=== PATIENT | female | born 1995 | race Caucasian/White ===

== ENCOUNTER 2019-05-20 08:04 | Emergency (ER) | payer BC, SELFPAY ==
--- NOTE | ~2019-05-20 | XR_ITS ---
EXAMINATION: XR chest 2V 05/20/2019 09:14 INDICATION: Productive cough and fever PROCEDURE: 2 view chest COMPARISON: 02/13/2015 FINDINGS: The lungs are clear. The cardiomediastinal silhouette is within normal limits. There are no pleural effusions. There is no pneumothorax suspected. IMPRESSION: 1: NO ACUTE CARDIOPULMONARY DISEASE. Reviewed, dictated and finalized at location A.
[2019-05-20 08:35] VITALS: BP 117/73; PULSE 138; RESP 16; TEMP 37.9; O2SAT 99
--- NOTE | 2019-05-20 08:49 | ED.GENADULT ---
HPI - General Adult General Chief complaint: Upper Respiratory Infection Stated complaint: Coughing fits/sore throat/back pain/wheezing Time Seen by Provider: 05/20/19 08:49 Source: patient Mode of arrival: ambulatory Limitations: no limitations History of Present Illness HPI narrative: 24-year-old female patient presents to the [facility] with complaints of cold symptoms for the past 2 to 3 days. Patient states she has had a cough, shortness of breath. Patient states that she has been feeling very tired and rundown recently. Denies getting a flu shot. Patient states she has been taking Mucinex, honey and Tylenol for her symptoms. Patient denies being a smoker or living in a household where anyone smokes. Patient states about 5 years ago she did get pneumonia and had similar symptoms. Patient denies or breast-feeding at this time. Patient denies any recent travel history within the last 2 weeks. Related Data Allergies Allergy/AdvReac Type Severity Reaction Status Date / Time No Known Allergies Allergy Unverified 10/01/18 09:52 Review of Systems Review of Systems: Narrative: CONSTITUTIONAL: Positive fever, denies chills, or sweats. EYES: Denies visual changes, redness, or discharge. ENT: Positive rhinorrhea, congestion, sore throat, denies otalgia. CARDIOVASCULAR: Denies chest pain, palpitations, or edema. RESPIRATORY: Positive cough with dyspnea. GASTROINTESTINAL: Denies abdominal pain, nausea, vomiting, or diarrhea. GENITOURINARY: Denies dysuria or hematuria. SKIN: Denies rash or itching. MUSCULOSKELETAL: Denies back pain, joint pain, or myalgia. NEUROLOGIC: Denies headache, numbness, or weakness. PSYCHIATRIC: Denies anxiety or depression. PMFSH Surgical History Surgical History (Updated 05/20/19 @ 08:50 by LATRELL Rojas) History of orthopedic surgery Bunionectomy, trigger release Social History Social History Gender identity (if verbalized by the patient): Female Comments At the time of my signature I agree with nursing past medical history, surgical, social, and family history. There is no relevant family history pertinent to the presenting complaint. Exam Narrative: Exam Narrative: GENERAL: ill-appearing, well-nourished, and in no acute distress. HEAD: Normocephalic, atraumatic. No tenderness noted to frontal maxillary sinuses on palpation EYES: PERRLA and EOMI. ENT: Nares with erythema and edema noted bilaterally, no rhinorrhea or epistaxis. Mucous membranes moist. Posterior pharynx with no erythema, tonsil enlargement, exudates or lesions present. Bilateral TMs are clear with no erythema or foreign bodies in the canal NECK: Supple. No lymphadenopathy CHEST: Patient does have decreased lung sounds noted to bilateral lower lobes on auscultation. Patient does have slight labored breathing noted but able to talk in clear complete sentences. No tripoding noted. There is a cough noted during exam. HEART: Regular rate and rhythm. No murmur heard. Normal peripheral pulses. ABDOMEN: Soft, nontender, nondistended, normal active bowel sounds. EXTREMITIES: Normal range of motion. No edema. SKIN: Warm, dry, no rash. NEURO: No focal deficits. Alert and oriented x3. Course Reevaluation(s) Reevaluation #1: Reevaluated patient after DuoNeb was completed. Patient states that she is feeling better feels like she can take the big deeper breaths. Patient's lung sounds are clear to bilateral in upper and lower lobes on auscultation after the DuoNeb was completed. Discussed with patient that her x-ray is negative for any pneumonia. Discussed with patient that again she could possibly still have influenza however since she is outside of the time to be treated I do not think that we need to swab her today. Discussed with patient her treatment is good to be [id number] Tylenol, ibuprofen I am to discharge her home with an albuterol inhaler, oral steroid,
[2019-05-20] MEDS: ALBUTEROL SULFATE NEB 2.5 MG/3 ML INH INHALATION (09:16)
[2019-05-20] MEDS: IPRATROPIUM BR 0.02% INH SOLN 0.5 MG/2.5 ML VIAL INHALATION (09:16)
== END 2019-05-20 09:48 | disposition home or self-care (01) ==
PROVIDERS: Emergency Provider Nurse Practitioner Family
DX: J06.9 Acute upper respiratory infection, unspecified (principal); R05 Cough
CPT/HCPCS: 71046; 87081; 87880; 94640; 99213; G0463

== ENCOUNTER 2023-01-13 15:12 | Emergency (ER) | payer BC, SELFPAY ==
--- NOTE | 2023-01-13 15:19 | ED.URI ---
HPI - URI/Sore Throat General Chief Complaint: Upper Respiratory Infection Stated Complaint: Cough Time Seen by Provider: 01/13/23 15:19 Source: patient Mode of arrival: ambulatory Limitations: no limitations History of Present Illness HPI Narrative: Patient is a 27-year-old female who presents with 2 weeks of cough, congestion. Patient states she had fever at the start of symptoms but has not had 1 since. Patient reports she has coughing fits where she can not catch her breath and feels like she is going to throw up. Patient has tried [id number] medication with no relief. Patient has tried to contact PCP's office twice and was unable to make an appointment due to full schedule. Denies any ear pain, sore throat, sinus pressure, nausea, vomiting, diarrhea. Related Data Allergies Allergy/AdvReac Type Severity Reaction Status Date / Time No Known Allergies Allergy Unverified 01/13/23 15:30 Review of Systems Review of Systems: All systems reviewed & are unremarkable except as noted in HPI and below Constitutional: Constitutional: Denies body ache(s), Denies chills, Denies fatigue, Denies fever(s), Denies headache(s), Denies malaise and Denies weakness Eyes: Eyes: Denies blurry vision, Denies itchy eyes and Denies loss of vision ENT: Denies otalgia, Denies headache(s), Reports nasal congestion, Denies sinus pain and Denies sore throat Cardiovascular: Cardiovascular: Denies chest pain, Denies irregular heart rhythm and Denies dyspnea Respiratory: Respiratory: Reports cough and Denies dyspnea Gastrointestinal: Gastrointestinal: Denies abdominal pain, Denies diarrhea, Denies nausea and Denies vomiting Musculoskeletal: Musculoskeletal: Denies back pain, Denies myalgias and Denies arthralgias Integumentary/Breasts: Skin/Breast: Denies pruritus and Denies rash Neurologic: Denies headache(s), Denies loss of vision and Denies weakness Psychiatric: Psychiatric: Reports no additional psychiatric complaints Endocrine: Endocrine: Denies fatigue Allergic/Immunologic: Allergic/Immunologic: Denies itchy eyes PMFSH Surgical History Surgical History History of orthopedic surgery Bunionectomy, trigger release Social History Social History Gender identity (if verbalized by the patient): Female Comments At time of signature, agree with nursing past medical, surgical, social and family history. There is no relevant family history pertinent to the presenting complaint. Exam Const: General: cooperative, healthy appearing, comfortable, no acute distress and well nourished Nutritional Appearance: well nourished Orientation/consciousness: patient oriented x3 Limitations: no limitations HENMT: Head: normal to inspection, normocephalic and atraumatic Ears: hearing grossly normal bilaterally, external ears normal, TM's normal bilaterally, EAC's normal and no periauricular adenopathy Face/Nose/Sinus: Normal external nose present, Abnormal mucous membranes and turbinates present erythematous bilateral and diffuse, normal facial exam, sinuses nontender and face symmetric Face and sinus: normal facial exam, sinuses nontender and face symmetric Mouth: Yes Normal oral and palatal mucosa present, Yes lip normal, Yes tongue normal, Yes Normal salivary glands and ducts present, Yes oropharynx normal and Yes moist mucous membranes Teeth and gingiva: dentition normal Throat: posterior oropharynx normal, tonsils normal and uvula midline Eyes: General: appearance normal, both eyes and all related structures Alignment and Position: alignment normal and position normal Periorbital: periorbital findings normal Eyelids: eyelids normal Pupils: Equal, round and reactive pupils present Neck: Neck: normal visual inspection, full ROM, no lymphadenopathy and supple Chest: Chest palpation & inspection: normal inspection of the chest and
[2023-01-13 15:21] VITALS: BP 126/73; PULSE 113; RESP 18; TEMP 36.8; O2SAT 99
== END 2023-01-13 15:39 | disposition home or self-care (01) ==
PROVIDERS: Emergency Provider Nurse Practitioner Family; PCP Family Medicine
DX: J40 Bronchitis, not specified as acute or chronic (principal)
CPT/HCPCS: 99213; G0463

== ENCOUNTER 2023-01-19 18:29 | Emergency (ER) | payer BC, SELFPAY ==
--- NOTE | ~2023-01-19 | XR_ITS ---
EXAMINATION: XR chest 2V DATE: 01/19/2023 19:03 INDICATION: Cough. TECHNIQUE: Frontal and lateral views of the chest were obtained. COMPARISON: Chest 2 views 05/20/2019, CT abdomen and pelvis 06/17/2009 FINDINGS: There is no pneumonia, pleural effusion, or pneumothorax. The heart size is normal. There i s mild chronic anterior wedging of T12 vertebral body. IMPRESSION: 1. No acute cardiopulmonary disease. Reviewed, dictated and finalized at location E. [facility]
[2023-01-19 18:42] VITALS: BP 138/75; PULSE 94; RESP 18; TEMP 36.4; O2SAT 100
--- NOTE | 2023-01-19 18:55 | ED.URI ---
HPI - URI/Sore Throat General Chief Complaint: Upper Respiratory Infection Stated Complaint: cough Time Seen by Provider: 01/19/23 18:47 Source: patient, RN notes reviewed and old records reviewed Mode of arrival: ambulatory Limitations: no limitations History of Present Illness HPI Narrative: Patient presents with a 3 week history of cough that is occasionally productive, wheezing, shortness of breath with exertion, chest congestion. She was seen at [facility] 6 days ago, diagnosed with bronchitis, and prescribed azithromycin, Tessalon Perles, albuterol, and prednisone. Patient states the medications have not been helping her, except the albuterol inhaler when she uses it. Denies history of asthma. Denies fever. Related Data Allergies Allergy/AdvReac Type Severity Reaction Status Date / Time No Known Allergies Allergy Unverified 01/15/23 14:12 Review of Systems Review of Systems: CONSTITUTIONAL: Denies body aches, fever, chills, or sweats. EYES: Denies visual changes, redness, or discharge. ENT: Denies rhinorrhea, congestion, sore throat, or otalgia. CARDIOVASCULAR: Denies chest pain, palpitations, or edema. RESPIRATORY: + cough, wheezing, shortness of breath, chest congestion GASTROINTESTINAL: Denies abdominal pain, nausea, vomiting, or diarrhea. GENITOURINARY: Denies dysuria or hematuria. SKIN: Denies rash, itching, or wounds. MUSCULOSKELETAL: Denies back pain, joint pain, or myalgia. NEUROLOGIC: Denies headache, numbness, tingling, or weakness. PSYCH: Denies depression or anxiety. [facility] Surgical History Surgical History History of orthopedic surgery Bunionectomy, trigger release Social History Social History Gender identity (if verbalized by the patient): Female Comments At time of signature, I have reviewed and agree with nursing past medical, surgical, social and family history unless otherwise noted. Please see nursing chart for further information. There is no relevant family history pertinent to the presenting complaint Exam Narrative: GENERAL: Mildly ill-appearing, well-nourished, and in no acute distress. HEAD: Normocephalic, atraumatic. EYES: EOMI. No redness or drainage. Conjunctivae normal. ENT: Mucous membranes pink and moist. Nares clear. No rhinorrhea. TMs normal bilaterally. Throat normal. Uvula midline. NECK: Normal AROM. Supple. No lymphadenopathy. CHEST: No respiratory distress. Clear to auscultation. Harsh cough noted. HEART: Regular rate and rhythm. No murmur appreciated. Normal peripheral pulses. EXTREMITIES: Normal range of motion. No edema. SKIN: Warm, dry, no rash. Capillary refill normal. Normal skin turgor. NEURO: No focal deficits. Alert and oriented x3. Gait steady. PSYCH: Normal affect. No signs of depression or anxiety. Course Course Level of Care: Express Care Visit Vital Signs Vital signs: Vital Signs Temperature 97.5 F L 01/19/23 18:42 Pulse Rate 94 01/19/23 18:42 Respiratory Rate 18 01/19/23 18:42 Blood Pressure 138/75 01/19/23 18:42 Pulse Oximetry 100 01/19/23 18:42 Oxygen Delivery Room Air 01/19/23 18:42 Temperature 97.5 F L 01/19/23 18:42 Pulse Rate 94 01/19/23 18:42 Respiratory Rate 18 01/19/23 18:42 Blood Pressure 138/75 01/19/23 18:42 Pulse Oximetry 100 01/19/23 18:42 Oxygen Delivery Room Air 01/19/23 18:42 Reviewed MDM - URI/Sore Throat MDM Narrative Medical decision making narrative: X-rays negative. Patient's symptoms are consistent with significant bronchitis. Will treat her with another short course of prednisone, but up to 50 mg daily this time, some Cheratussin to take at night as she states she is up all night coughing, Tessalon Perle to take during the day, but increased to 200 mg instead of 100 mg. Patient has also been instructed to use her inhaler every 4-6
== END 2023-01-19 19:31 | disposition home or self-care (01) ==
PROVIDERS: Emergency Provider Nurse Practitioner; PCP Family Medicine
DX: J40 Bronchitis, not specified as acute or chronic (principal)
CPT/HCPCS: 71046; 99213; G0463

== ENCOUNTER 2024-01-03 19:19 | Emergency (ER) | payer BC, SELFPAY ==
--- NOTE | 2024-01-03 19:26 | ED.URI ---
HPI - URI/Sore Throat General Chief Complaint: Upper Respiratory Infection Stated Complaint: coughing and sore throat/clumpy hard mucous Time Seen by Provider: 01/03/24 19:44 Source: patient, RN notes reviewed and old records reviewed Mode of arrival: ambulatory Limitations: no limitations History of Present Illness HPI Narrative: 28-year-old female presents to the [facility] with cough, sore throat that started yesterday. States that she is taking [id number] medications. Denies fevers Onset (ago): day(s) (1) Treatments prior to arrival: cold medicine Related Data Allergies Allergy/AdvReac Type Severity Reaction Status Date / Time No Known Allergies Allergy Unverified 03/28/23 09:38 Review of Systems Review of Systems: All systems reviewed & are unremarkable except as noted in HPI and below Constitutional: Constitutional: Reports no additional constitutional complaints ENT: Reports as per HPI and Reports sore throat Cardiovascular: Cardiovascular: Reports no additional cardiovascular complaints, Denies chest pain and Denies dyspnea Respiratory: Respiratory: Reports as per HPI, Denies chest congestion, Reports cough and Denies dyspnea Gastrointestinal: Gastrointestinal: Reports no additional gastrointestinal complaints, Denies abdominal pain, Denies nausea and Denies vomiting Musculoskeletal: Musculoskeletal: Reports no additional musculoskeletal complaints Integumentary/Breasts: Skin/Breast: Reports system reviewed and no additional complaints, except as docu PMFSH Surgical History Surgical History History of orthopedic surgery Bunionectomy, trigger release Social History Social History Smoking status: Never smoker Alcohol intake: never Substance use: never Lack of Transportation: No Lack of Food: Never True Current Housing: I Have Housing Concerned About Future Housing: No Difficulty Paying Gas/Electric Bills: No Difficulty Paying for Meds: No Currently Unemployed: No Education: High School Diploma/GED Difficulty w/ Childcare or Family Care: No Living arrangements: with family Occupation/Education: occupation Gender identity (if verbalized by the patient): Female Sexual Orientation (if Verbalized by the Patient): Straight or Heterosexual Spiritual care concerns: No Comments At the time of my signature, I reviewed and agree with the nursing past medical, surgical, social, and family history. There is no relevant family history pertinent to the patient complaint. Exam Const: General: cooperative, healthy appearing, comfortable, no acute distress, well developed, alert and well nourished Nutritional Appearance: well nourished Orientation/consciousness: patient oriented x3 Limitations: no limitations HENMT: Head: normal to inspection Ears: hearing grossly normal bilaterally, external ears normal, TM's normal bilaterally, EAC's normal, mastoids normal and no periauricular adenopathy Face/Nose/Sinus: Normal external nose present, normal facial exam and face symmetric Face and sinus: normal facial exam and face symmetric Mouth: Yes Normal oral and palatal mucosa present, Yes lip normal and Yes tongue normal Throat: uvula midline, postnasal drainage and no uvular edema Eyes: General: appearance normal, both eyes and all related structures Alignment and Position: alignment normal Periorbital: periorbital findings normal Neck: Neck: normal visual inspection, full ROM, no lymphadenopathy and no meningeal signs Chest: Chest palpation & inspection: normal inspection of the chest Resp: Effort & Inspection: normal respiratory effort and able to speak in complete sentences Auscultation: clear to auscultation bilaterally, no crackles, no rales, no rhonchi and no wheezes Cardio: Rate: regular rate Skin: General skin exam: normal color and no rashes or lesions noted Lesions: no lesions Rashes: no rashes Wounds: no wounds Neuro: General: patient oriented x3, gait normal, tone normal, moves all extremities and no meningeal signs Cognition (Neuro): normal cognition Speech: normal speech Gait exam (Neuro): Normal gait present Extrem: General: normal to inspection, full ROM, capillary refill normal and normal gait Psych: Appearance: grossly normal and well kempt Mental Status: mental status grossly normal Speech and movement: Normal speech and movement present and Clear speech present Affect: normal affect Attitude: cooperative Course Course Level of Care: Express Care Visit Vital Signs Vital signs: Vital Signs Temperature 98.0 F 01/03/24 19:41 Pulse Rate 119 H 01/03/24 19:41 Respiratory Rate 17 01/03/24 19:41 Blood Pressure 133/82 01/03/24 19:41 Pulse Oximetry 99 01/03/24 19:41 Oxygen Delivery Room Air 01/03/24 19:41 Temperature 98.0 F 01/03/24 19:41 Pulse Rate 119 H 01/03/24 19:41 Respiratory Rate 17 01/03/24 19:41 Blood Pressure 133/82 01/03/24 19:41 Pulse Oximetry 99 01/03/24 19:41 Oxygen Delivery Room Air 01/03/24 19:41 Reviewed MDM - URI/Sore Throat MDM Narrative Medical decision making narrative: Patient sitting comfortably in exam room. Nontoxic, vitals stable. Patient in no acute distress Patient with URI symptoms x1 day. States she has tried ?everything. ? Postnasal drainage noted on exam, cough probably from the postnasal drainage Patient appropriate for outpatient treatment and follow-up Discharge instructions reviewed with patient, as well as provided in writing per nursing staff. The instructions also include specific and strict return/GO TO THE ER as well as f/u information. All questions have been answered, and the patient deny any further questions with discharge and discharge plan. Some parts of this dictation were generated by voice recognition software and may contain typographical and/or grammatical inaccuracies. Differential Diagnosis Differential diagnosis: Likely upper respiratory infection, otitis media, sinusitis, viral infection, bronchitis and influenza Lab Data Labs: Lab Results 01/03/24 01/03/24 Range/Units 19:45 19:54 POC Influenza A Ag Negative (Negative) POC Influenza B Ag Negative (Negative) POC SARS CoV-2 Ag Negative (Negative) POC Grp A Strep Screen Negative (Negative) Reviewed Critical Care Time Critical Care Time Critical Care Time: No Discharge Plan Discharge Clinical Impression: Upper respiratory infection, PND (post-nasal drip) Patient Disposition: Home, Self-Care Condition: Stable Instructions: Antibiotic Form, Upper Respiratory Infection (ED), Acute Bronchitis (ED), Postnasal Drip (DC) Additional Instructions: Your rapid strep swab was negative today at [facility]. A throat culture will be sent to the laboratory for further testing. If the test is positive, you will receive a phone call within 48 hours and an appropriate antibiotic will be initiated at that time. Your rapid COVID test were negative Your rapid flu test was negative Your symptoms are likely due to a viral illness, which is not treated with antibiotics. Viral symptoms can be present for up to a few weeks. -Alternate Tylenol and Motrin per package directions for fever or pain. -Antihistamine medication such as Benadryl at night and Zyrtec/Claritin/Lori during the day can help improve symptoms. -doing daily nasal irrigations can help relieve pressure your sinuses. Things like a Neti pot -Use Flonase twice a day for 5 days then daily to help reduce the inflammation and dry up your sinuses. -You can also use Sudafed or Mucinex. Be sure to drink plenty of water with these medications at least 8 ounces with every dose and it is important to drink 8 to 10 glasses of water per day. Water is a natural decongestant -Eat and drink things that are easy to swallow, like tea or soup, or popsicles. -Oral rinses such as: Salt water gargles and/or may use topical anesthetic (eg. Chloraseptic spray) or lozenges to relieve dryness or throat pain). -Frequent hand washing or hand manager trust is one of the best ways to prevent spread of infection. -Using a vaporizer or humidifier at night will also help thin secretions and help with coughing up phlegm. -Follow up with primary care provider in 3-5 days if condition is not improving - For new or worsening symptoms go directly to the nearest ER Patient Language: Tongan Prescriptions: New benzonatate 100 mg capsule 100 mg PO TID PRN (Reason: cough) Qty: 10 0RF methylprednisolone [Methylpred DP] 4 mg tablets,dose pack See Rx Instructions PO .COMPLEX Qty: 21 0RF Rx Instructions: orally per package directions No Action benzonatate 200 mg capsule 200 mg PO TID PRN (Reason: cough) Qty: 40 0RF Follow-up/Referrals: Jose Redmond MD [Primary Care Provider] - 2 Weeks ([facility] follow-up) Stand Alone Forms: Work/School Release IP Time of Disposition: 19:53
[2024-01-03 19:41] VITALS: BP 133/82; PULSE 119; RESP 17; TEMP 36.7; O2SAT 99
[2024-01-03 19:46] LABS: EDSTREPNEGPOS1 Negative (Negative)
[2024-01-03 19:56] LABS: EDCOVIDSCREEN Negative (Negative); EDINFLUASCREEN Negative (Negative); EDINFLUBSCREEN Negative (Negative)
== END 2024-01-03 19:54 | disposition home or self-care (01) ==
PROVIDERS: Emergency Provider Nurse Practitioner; PCP Family Medicine
DX: J06.9 Acute upper respiratory infection, unspecified (principal); R09.82 Postnasal drip; Z20.822 Contact with and (suspected) exposure to COVID-19
CPT/HCPCS: 87081; 87426; 87804; 87880; 99213; G0463

== ENCOUNTER 2024-02-12 18:42 | Emergency (ER) | payer BC, SELFPAY ==
--- NOTE | ~2024-02-12 | XR_ITS ---
XR chest 2V Ordering provider: Estrella Diaz APRN History: 28 years Female with . cough . Comparison: None. FINDINGS: MEDIASTINUM: The cardiac silhouette is not enlarged. LUNGS: No effusions or pneumothorax. Opacification in the right paracardiac area with loss of silhoue tte of the right cardiac border suggestive of pneumonia in the middle lobe. OTHER: No free air under the diaphragm. IMPRESSION: Middle lobe pneumonia. Reviewed, dictated and finalized at location A. [facility] [employer] IMPRESSION: Middle lobe pneumonia.
--- NOTE | 2024-02-12 18:54 | ED_ITS ---
HPI - URI/Sore Throat General Chief Complaint: Upper Respiratory Infection Stated Complaint: sore throat / cough Time Seen by Provider: 02/12/24 18:55 Source: patient, RN notes reviewed and old records reviewed Mode of arrival: ambulatory Limitations: no limitations History of Present Illness HPI Narrative: 28-year-old female presents to the [facility] with a cough, sore throat and laryngitis since Sunday, 4 days. Has taken Flonase pills as well as 1 dose of ibuprofen. Denies fever Onset (ago): day(s) (4) Related Data Home Medications Medication Instructions Recorded Confirmed etonogestrel 68 mg subdermal 1 implant subdermal ONCE 02/12/24 02/12/24 implant (Nexplanon) Allergies Allergy/AdvReac Type Severity Reaction Status Date / Time No Known Allergies Allergy Verified 02/12/24 18:49 Review of Systems Review of Systems: All systems reviewed & are unremarkable except as noted in HPI and below Constitutional: Constitutional: Reports no additional constitutional complaints ENT: Reports as per HPI and Reports sore throat Cardiovascular: Cardiovascular: Reports no additional cardiovascular complaints, Denies chest pain and Denies dyspnea Respiratory: Respiratory: Reports as per HPI, Denies chest congestion, Reports cough, Reports excessive phlegm production and Denies dyspnea Gastrointestinal: Gastrointestinal: Reports no additional gastrointestinal complaints, Denies abdominal pain, Denies nausea and Denies vomiting Musculoskeletal: Musculoskeletal: Reports no additional musculoskeletal complaints Integumentary/Breasts: Skin/Breast: Reports system reviewed and no additional complaints, except as docu COUNTS INCLUDE 234 BEDS AT THE [facility] Surgical History Surgical History History of orthopedic surgery Bunionectomy, trigger release Social History Social History Smoking status: Never smoker Alcohol intake: never Substance use: never Lack of Transportation: No Lack of Food: Never True Current Housing: I Have Housing Concerned About Future Housing: No Difficulty Paying Gas/Electric Bills: No Difficulty Paying for Meds: No Currently Unemployed: No Education: High School Diploma/GED Difficulty w/ Childcare or Family Care: No Living arrangements: with family Occupation/Education: occupation Gender identity (if verbalized by the patient): Female Sexual Orientation (if Verbalized by the Patient): Straight or Heterosexual Spiritual care concerns: No Comments At the time of my signature, I reviewed and agree with the nursing past medical, surgical, social, and family history. There is no relevant family history pertinent to the patient complaint. Exam Const: General: cooperative, healthy appearing, comfortable, no acute distress, well developed, alert and well nourished Nutritional Appearance: well nourished and obese Orientation/consciousness: patient oriented x3 Limitations: no limitations HENMT: Head: normal to inspection Ears: hearing grossly normal bilaterally, external ears normal, TM's normal bilaterally, EAC's normal, mastoids normal and no periauricular adenopathy Face/Nose/Sinus: Normal external nose present, normal facial exam and face symmetric Face and sinus: normal facial exam and face symmetric Mouth: Yes Normal oral and palatal mucosa present, Yes lip normal and Yes tongue normal Throat: posterior oropharynx normal, uvula midline and no uvular edema Eyes: General: appearance normal, both eyes and all related structures Alignment and Position: alignment normal Periorbital: periorbital findings normal Neck: Neck: normal visual inspection, full ROM, no lymphadenopathy and no meningeal signs Chest: Chest palpation & inspection: normal inspection of the chest Resp: Effort & Inspection: normal respiratory effort and able to speak in complete sentences Auscultation: no crackles, no rales, no rhonchi, no wheezes and diminished lung sounds bilateral in the lower lung brown Cardio: Rate: regular rate Skin: General skin exam: normal color and no rashes or lesions noted Lesions: no lesions Rashes: no rashes Wounds: no wounds Neuro: General: patient oriented x3, gait normal, tone normal, moves all extremities and no meningeal signs Cognition (Neuro): normal cognition Speech: normal speech Gait exam (Neuro): Normal gait present Extrem: General: normal to inspection, full ROM, capillary refill normal and normal gait Psych: Appearance: grossly normal and well kempt Mental Status: mental status grossly normal Speech and movement: Normal speech and movement present and Clear speech present Affect: normal affect Attitude: cooperative Course Course Level of Care: Express Care Visit Vital Signs Vital signs: Vital Signs Temperature 98.0 F 02/12/24 18:55 Pulse Rate 111 H 02/12/24 18:55 Respiratory Rate 18 02/12/24 18:55 Blood Pressure 132/73 02/12/24 18:55 Pulse Oximetry 100 02/12/24 18:55 Oxygen Delivery Room Air 02/12/24 18:55 Temperature 98.0 F 02/12/24 18:55 Pulse Rate 111 H 02/12/24 18:55 Respiratory Rate 18 02/12/24 18:55 Blood Pressure 132/73 02/12/24 18:55 Pulse Oximetry 100 02/12/24 18:55 Oxygen Delivery Room Air 02/12/24 18:55 Reviewed MDM - URI/Sore Throat MDM Narrative Medical decision making narrative: Patient sitting comfortably in exam room. Nontoxic, vitals stable. Patient in no acute distress Patient presents with sore throat cough x4 days Strep test negative, x-ray showed a right middle lobe pneumonia. Patient appropriate for outpatient treatment with close follow Discharge instructions reviewed with patient, as well as provided in writing per nursing staff. The instructions also include specific and strict return/GO TO THE ER as well as f/u information. All questions have been answered, and the patient deny any further questions with discharge and discharge plan. Some parts of this dictation were generated by voice recognition software and may contain typographical and/or grammatical inaccuracies. Differential Diagnosis Differential diagnosis: Likely upper respiratory infection, otitis media, sinusitis, viral infection, bronchitis and pharyngitis Lab Data Labs: Lab Results 02/12/24 Range/Units 19:07 POC Grp A Strep Screen Negative (Negative) Reviewed Imaging Data Radiologist's impression: XR chest 2V Ordering provider: Estrella Diaz APRN History: 28 years Female with . cough . Comparison: None. FINDINGS: MEDIASTINUM: The cardiac silhouette is not enlarged. LUNGS: No effusions or pneumothorax. Opacification in the right paracardiac area with loss of silhouette of the right cardiac border suggestive of pneumonia in the middle lobe. OTHER: No free air under the diaphragm. IMPRESSION: Middle lobe pneumonia. Critical Care Time Critical Care Time Critical Care Time: No Discharge Plan Discharge Clinical Impression: Right middle lobe pneumonia Patient Disposition: Home, Self-Care Condition: Stable Instructions: Upper Respiratory Infection (DC), Acute Bronchitis (ED) Additional Instructions: Your rapid strep swab was negative today at [facility]. A throat culture will be sent to the laboratory for further testing. If the test is positive, you will receive a phone call within 48 hours and an appropriate antibiotic will be initiated at that time. It is very important to treat your symptoms. Drink Plenty of water, Gatorade, Pedialyte, ice pops or Jell-O. -Alternate Tylenol and Motrin per package directions for fever or pain. You can alternate every 4 hours -Antihistamine medication such as Benadryl at night and Zyrtec/Claritin/Lori during the day can help improve symptoms. -doing daily nasal irrigations can help relieve pressure your sinuses. Things like a Neti pot -Use Flonase twice a day for 5 days then daily to help reduce the inflammation and dry up your sinuses. -You can also use Mucinex. Be sure to drink plenty of water with this medication at least 8 ounces with every dose and it is important to drink 8 to 10 glasses of water per day. Water is a natural decongestant -Eat and drink things that are easy to swallow, like tea or soup, or popsicles. -Oral rinses such as: Salt water gargles and/or may use topical anesthetic (eg. Chloraseptic spray) or lozenges to relieve dryness or throat pain). -Frequent hand washing or hand trailer park manager is one of the best ways to prevent spread of infection. -Using a vaporizer or humidifier at night will also help thin secretions and help with coughing up phlegm. -Follow up with primary care provider in 7-10 days if condition is not improving - For new or worsening symptoms go directly to the nearest ER Patient Language: Macanese Prescriptions: New azithromycin 250 mg tablet See Rx Instructions .ROUTE .COMPLEX Qty: 6 0RF Rx Instructions: take 500 mg today (day 1), then 250 mg for 4 days (days 2-5) amoxicillin-pot clavulanate 875-125 mg tablet 1 tablet PO Q12H Qty: 14 0RF No Action Nexplanon 68 mg Implant 1 implant SUBDERMAL ONCE Rx Instructions: as a single dose Follow-up/Referrals: Jose Redmond MD [Primary Care Provider] - 1 Week ([facility] care follow up ) Stand Alone Forms: Work/School Release IP Time of Disposition: 19:17
[2024-02-12 18:55] VITALS: BP 132/73; PULSE 111; RESP 18; TEMP 36.7; O2SAT 100
[2024-02-12 19:09] LABS: EDSTREPNEGPOS1 Negative (Negative)
== END 2024-02-12 19:18 | disposition home or self-care (01) ==
PROVIDERS: Emergency Provider Nurse Practitioner; PCP Family Medicine
DX: J18.1 Lobar pneumonia, unspecified organism (principal)
CPT/HCPCS: 71046; 87081; 87880; 99213; G0463

== ENCOUNTER 2024-07-14 19:03 | Emergency (ER) | payer BC, SELFPAY ==
--- OUTSIDE RECORDS SUMMARY | 2024-07-14 19:06 | XMS_ITS | Data Portability ---
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 Patient will come back in a year unless there are new symptoms. [email or web address] Not available 04/20/2022 14:00:24 Plan of Treatment Reminders Order Date Submit Date Provider Last Modified By Organization Details Last Modified Time Details Appointments None recorded. Lab test, urine 2022 023 [facility], [address], [place], [address], 3 14:32:56 test, urine 2019 [address], [address], [place], [address], 0 16:31:03 Referral None recorded. Procedures None recorded. Surgeries None recorded. Imaging None recorded. Medication Orders Nexplanon 68 mg subdermal implant 2022 023 [id number], [address], [place], [place], [id number], 3 14:41:36 Patient TargetsNo targets recorded. Patient InstructionsNo instructions recorded. Reason for Referral None Reported. Results Created Date Observation Date Name Description Value Unit Range Abnormal Flag Note LastModifiedBy Organization Detail LastModifiedTime 07/25/19 20 07/25/2019 pregn galen test, urine HCG negati ve Not Available [place] [address], [place], [address], 07/25/2019 11:53:37 06/24/19 21 06/23/2020 cultu re, urine result report SEE RESULT S BELOW abnormal Test: Cultu re: Urine Speci men Sourc e: Urine Voide d Speci men Type: Urine Speci men Date: 2020 12:41 PM Resul t Date: 2020 8:51 AM Resul t Statu s: Final resul t Abnor mal: Yes Resul jarett Lab: [facility] [address] [facility] [address] Tel: CULTU RE ----- ----- ----- --- >100, 000 CFU/m l Esche gonzalo a coli (Abno rmal) SUSCE PTIBI LITY ----- ----- ----- --- Esche gonzalo a coli METHO D CONY ----- ----- ----- ----- ----- ---- ----- ----- ----- ----- ----- - AMIKA URIEL <=16 ug/mL Susce ptibl e AMPIC ILLIN >16 ug/mL Resis tant AMPIC ILLIN /SULB ACTAM 16 ug/mL Inter media te AZTRE ONAM <=4 ug/mL Susce ptibl e CEFAZ COLEEN <=2 ug/mL Susce ptibl e CEFEP MEG <=2 ug/mL Susce ptibl e CEFOX ITIN <=8 ug/mL Susce ptibl e CEFTA ZIDIM E <=1 ug/mL Susce ptibl e CEFTR IAXON E <=1 ug/mL Susce ptibl e CIPRO FLOXA URIEL <=1 ug/mL Susce ptibl e GENTA MICIN <=1 ug/mL Susce ptibl e LEVOF LOXAC IN <=0.2 5 ug/mL Susce ptibl e MEROP ENEM <=1 ug/mL Susce ptibl e NITRO FURAN TOIN <=32 ug/mL -- PIPER ACILL IN/TA ZOBAC BERUMEN <=4 ug/mL Susce ptibl e TOBRA MYCIN <=1 ug/mL Susce ptibl e TRIME THOPR IM/MCCOY LFAME THOXA ZOLE <=2 ug/mL Susce ptibl e Not Available [facility] (Lab) [address], [place], [address], 06/26/2020 09:54:08 04/20/19 23 04/20/2022 IMAGE GUIDE D PAP, REFLE X HPV IF ASCUS ONLY image guided Pap, reflex HPV ASCUS only SEE RESULT S BELOW abnormal CASE REPOR T: Cytol ogy Gynec ologi nicolette Repor t Case: [id number] Autho asael dar Provi [place]: George Currie Colle cted: 04/20 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 Alix peñaloza by Krupa Arreola MD on 2022 at 5:26 PM ----- ----- ----- ----- ----- ----- ----- ----- ----- ----- ----- ----- ----- ----- ----- ----- ----- ---- HPV RESUL TS: HPV mRNA E6/E7 : Posit barbie - HPV mRNA Detec sergey HPV GENOT YPE 16 (ANEL) : Not Detec sergey HPV GENOT YPE 18/45 (ANEL) : Not Detec sergey NOTE: This high risk HPV mRNA assay detec ts fourt een high- risk HPV types (16, 18, 31, 33, 35, 39, 45, 51, 52, 56, 58, 59, 66, 68) witho ut diffe renti ation . This assay can diffe renti ate HPV 16 from HPV 18/45 , but does not diffe renti ate betwe en HPV 18 and HPV 45. A negat barbie HPV 16, 18/45 genot ype assay resul t does not exclu de the possi bilit y of cytol ogic abnor malit ies or of futur e or under lying URIEL 1, URIEL 3 or cance r. COMME NT: Note: This speci men was revie wed by a Cytot echno logis t and/o r Patho logis t (as indic ated in this repor t) after evalu ation using the Thinp rep Imagi ng Syste m. CLINI NICOLETTE INFOR MATIO N: Menst rual Statu s: LMP (if appli cable ): Clini nicolette Histo ry/Pr eviou s Pap: Type of Neopl parvez (if appli cable ): Signi fican t Clini nicolette Findi ngs: Other Histo ry: Hormo bharath (if appli cable ): JEAN-CLAUDE ZHENG FOLLO W-UP: Follo w up as warra nted, based on curre nt guide lines and indiv idual patie nt consi derat ions. Not Available [facility] (Lab) [address], [place], [address], 04/28/2022 15:14:16 04/20/19 23 04/20/2022 CT/GC (ANEL) , THINP REP VIAL chlamydia trachomatis, PCR Negati ve negati ve Not Available [facility] (Lab) [address], [place], [address], 04/28/2022 15:14:17 04/20/19 23 04/20/2022 CT/GC (ANEL) , THINP REP VIAL neisseria gonorrhoeae, PCR Negati ve negati ve Not Available [facility] (Lab) [address], [place], [address], 04/28/2022 15:14:17 04/20/19 23 04/20/2022 TRICH OMONA S VAGIN JOANNA (RRNA ) trichomonas vaginalis ribosomal RNA (rrna) Negati ve negati ve Not Available [facility] (Lab) [address], [place], [address], 04/28/2022 15:14:05/19/19 23 05/18/2022 SURGI NICOLETTE PATHO LOGY surgical pathology SEE RESULT S BELOW CASE REPOR T: Surgi nicolette Patho logy Repor t Case: [id number] Autho asael dodge Provi madison: George Currie Colle cted: 05/18 1653 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 Alix peñaloza by Gian Cardenas MD on 2022 at 2:29 PM ----- ----- ----- ----- ----- ----- ----- ----- ----- ----- ----- ----- ----- ----- ----- ----- ----- ---- CLINI NICOLETTE INFOR MATIO N: r87.6 10 MICRO SCOPI C DESCR IPTIO N: A micro scopi c exami natio n was perfo rmed. GROSS DESCR IPTIO N: A. Cervi x. The speci men is label ed with the patie nt's name, demog stanislaw cs and TMZ . Recei cresencio in forma fransisco is a 0.1 x 0.2 x 0.[address] of mucus and minut e white -raines tissu e. The entir e speci men is submi tted in one casse tte. Gross ed by Kena Russell Not Available [facility] (Lab) [address], [place], [address], 05/19/2022 15:32:41 05/19/19 23 05/18/2022 pregn galen test, urine HCG negati ve Not Available [facility] [address], [place], [address], 05/18/2022 14:32:45 Result Notes None recorded. 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) (routine) w/o abn findings;Miriam zhong ID: 0001 Not Available [facility] 0 18:31:42 Finding of pattern of menstrual cycle 400046402 Active 2018 Excessive and frequent menstruati on with irregular cycle;Prac emily ID: 0001 Not Available [facility] 0 18:31:42 Elevated blood-pre ssure reading without diagnosis of hypertens ion 098264526 Active 2018 Elevated blood-pres sure reading, w/o diagnosis of htn;Practi ce ID: 0001 Not Available [facility] 0 18:31:42 Procedure Active 2018 Enctr srvlnc implantabl e subdermal contracept barbie;Practi ce ID: 0001 Not Available [facility] 0 18:31:42 test negative 758375193 Active 2018 Encounter for test, result negative;Miriam ridleytice ID: 0001 Not Available [facility] 0 18:31:42 Pelvic and perineal pain 598114984 Active 2017 Pelvic and perineal pain;Recor ded Elsewhere: No Locatio n: [facility] rce: EHR Chroni c: N Practice ID: 0001 Billa ble Time: 10:30:00 AM Not Available [facility] 0 18:31:43 Clinical finding Active 2017 Encounter for surveillan ce of injectable contracept barbie;Record ed Elsewhere: No Locatio n: [facility] rce: EHR Chroni c: N Practice ID: 0001 Billa ble Time: 11:00:00 AM Not Available [facility] 0 18:31:43 Implantat ion of subcutane ous contracep tive Active 2014 Insertion of implantabl e subdermal contracept barbie;Record ed Elsewhere: No Locatio n: [facility] rce: EHR Chroni c: N Practice ID: 0001 Billa ble Time: 02:30:00 PM Not Available [facility] 0 18:31:43 Blood leukocyte number above reference range 083915239 Active 2018 Elevated white blood cell count, unspecifie d;Recorded Elsewhere: No Locatio n: [facility] rce: EHR Chroni c: N Practice ID: 0001 Billa ble Time: 01:30:00 PM Not Available [facility] 0 18:31:43 Screening for malignant neoplasm of cervix Active 2016 Screening for malignant neoplasms of the cervix;Rec orded Elsewhere: No Locatio n: [facility] rce: EHR Chroni c: N Practice ID: 0001 Billa ble Time: 01:45:00 PM Not Available [facility] 0 18:31:43 Education Active 2014 Counseling contracept barbie management ;Practice ID: 0001 Not Available [facility] 0 18:[facility]:[address] Concept Active 2014 Encounter for surveillan ce of other contracept jorgito;Pract ice ID: 0001 Not Available [facility] 0 18:31:43 Body mass index 30+ - obesity 993393856 Active 2016 Body mass index (BMI) 33.0-33.9, adult;Prac emily ID: 0001 Not Available [facility] 0 18:31:44 Backache 893423331 Active 2017 Dorsalgia, unspecifie d;Practice ID: 0001 Not Available [facility] 0 18:31:44 Pain in female genitalia Active 2017 Dysmenorrh ea, unspecifie d;Practice ID: 0001 Not Available [facility] 0 18:31:[address] Concept Active 2018 Encntr for general adult medical exam w/o abnormal findings;R ecorded Elsewhere: No Locatio n: [facility] rce: EHR Chroni c: N Practice ID: 0001 Billa ble Time: 08:45:00 AM Not Available [facility] 0 18:31:45 Problem Notes None recorded. Procedures Surgical History Date Name Laterality Status Provider Name and Address Organization Details Recorded Time 06/22/19 23 Control Im[facility] Removal [facility] [address], [place], [address], [facility] 06/21/2022 14:41:18 06/22/19 23 Control Implant Insertion completed [facility] [address], [place], [address], [facility] 06/21/2022 14:41:25 05/19/19 23 Colposcopy completed [facility] [address], [place], [address], [facility] 05/18/2022 14:47:53 04/20/19 23 Date of Last Pap Smear completed Chelsy Azul [facility] 05/18/2022 10:19:46 07/25/19 20 Control Implant Removal completed Jessa Arreola [facility] [address], [place], [address], [facility] 07/25/2019 10:11:59 07/25/19 20 Control Implant Insertion completed Jessa Arreola [facility] [address], [place], [address], [facility] 07/25/2019 10:13:06 Imaging Results None recorded. Procedure Notes None recorded. Medical Equipment None Reported. Allergies No known drug allergies Medications Name Sig Start Date Stop Date Status Note LastModified by Organization Details LastModified Time cyclobenz aprine 10 mg tablet take 1 tablet by oral route 2 times every day 07/17 completed Prescrib ed Elsewher e: No Locat ion: [facility] odify By: rachael Diana r DateTime : 07/07/19 18 09:00:00 AM Not Available Not Available Not Available prednison e 20 mg tablet TAKE 2 TABLETS BY MOUTH EVERY DAY WITH FOOD FOR 3 DAYS. DO NOT TAKE WITH ASPIRIN OR NSAIDS SUCH ALEVE OR IBUPROFE N ETC 04/20 completed Not Available Not Available Not Available sulfameth oxazole 800 mg-trimet hoprim 160 mg tablet TAKE 1 TABLET BY MOUTH EVERY 12 HOURS FOR 4 DAYS. DRINK PLENTY OF FLUIDS AND. TAKE PROBIOTI C 04/20 completed Not Available Not Available Not Available Depo-Prov era 150 mg/mL intramusc ular suspensio n inject 1 millilit er by intramus cular route every 3 months 07/17 completed [facility] ed Elsewher e: No Locat ion: [facility] odify By: rachael Diana r DateTime : 06/22/19 18 11:20:42 AM Not Available Not Available Not Available triamcino lone acetonide 0.1 % topical ointment APPLY SPARINGL Y TO THE AFFECTED AREA EVERY 12 HOURS NEEDED 04/20 completed Not Available Not Available Not Available (21) 1.5 mg-30 mcg tablet TAKE 1 TABLET BY ORAL ROUTE EVERY DAY 11/02 completed Prescrib ed Elsewher e: No Locat ion: [facility] odify By: amalia champagne DateTime : 10/24/19 02:32:43 PM Not Available Not Available Not Available .08/08 (28) 1.5 mg-30 mcg (21)/75 mg (7) tablet take 1 tablet by oral route every day 05/02 completed Prescrib ed Elsewher e: No Locat ion: [facility] odify By: tej champagne DateTime : 04/03/19 02:03:37 PM Not Available Not Available Not Available nitrofura ntoin monohydra te/macroc rystals 100 mg capsule TAKE 1 CAPSULE BY MOUTH EVERY 12 HOURS WITH FOOD 04/20 completed Not Available Not Available Not Available Nexplanon 68 mg subdermal implant Inject 1 implant by subcutan eous route. 2022 active Not Available Not Available Not Avai lable Vitals Date Recorded Body height Body mass index (BMI) Body weight Provider Name and Address Organization Details Last Updated DateTime 04/20/2022 157.48 cm 41.2 kg/m2 240955.28 g Angelika Gomez [facility] 04/20/2022 14:01:21 Date Recorded Systolic blood pressure Diastolic blood pressure Provider Name and Address Organization Details Last Updated DateTime 04/20/2022 124 mm[Hg] 80 mm[Hg] Jessa Arreola, [facility] [address], [place], [address], [facility] 04/20/2022 14:17:47 Date Recorded Body height Body mass index (BMI) Body weight Provider Name and Address Organization Details Last Updated DateTime 05/18/2022 157.48 cm 41.7 kg/m2 078141.06 g Chelsy Azul [facility] 05/18/2022 14:27:33 Date Recorded Systolic blood pressure Diastolic blood pressure Provider Name and Address Organization Details Last Updated DateTime 05/18/2022 122 mm[Hg] 76 mm[Hg] Jessa Arreola, [facility] [address], [place], [address], [facility] 05/18/2022 14:44:52 Date Recorded Body height Body mass index (BMI) Body weight Provider Name and Address Organization Details Last Updated DateTime 06/21/2022 157.48 cm 41.9 kg/m2 555430.65 g Steffiame Blake [facility] 06/21/2022 14:30:44 Date Recorded Systolic blood pressure Diastolic blood pressure Provider Name and Address Organization Details Last Updated DateTime 06/21/2022 124 mm[Hg] 78 mm[Hg] Jessa Arreola, [facility] [address], [place], [address], [facility] 06/21/2022 14:42:39 Date Recorded Body height Body mass index (BMI) Body weight Systolic blood pressure Diastolic blood pressure Provider Name and Address Organization Details Last Updated DateTime 07/25/2019 1889.76 cm 0.3 kg/m2 03114.81 g 91 mm[Hg] 62 mm[Hg] Kaela Paul [facility] 0 09:46:04 Social History Question Answer Notes LastModified by Organizat ion Details LastModified Time Tobacco Smoking Status Never Smoker Ava Albert katherine, [facility] 06/21/2022 14:20:49 Do You Have An Advance Directive? No Information n ot available 06/23/2020 What Is Your Level Of Alcohol Consumption? None Information not available 06/23/2020 How Many Years Have You Consumed Alcohol? 0 [email or web address] Information not available 04/20/2022 Are You Blind Or Do You Have Difficulty Seeing? No Information n ot available 06/23/2020 What Is Your Level Of Caffeine Consumption? Occasional [email or web address] Information not available 04/20/2022 How Much Tobacco Do You Chew? None Information not available 04/20/2022 In The 14 Days Before Symptom Onset, Have You Had Close Contact With A Laboratory-confirm ed COVID-19 While That Case Was Ill? No Information n ot available 06/23/2020 In The 14 Days Before Symptom Onset, Have You Had Close Contact With A Person Who Is Under Investigation For COVID-19 While That Person Was Ill? No Information not available 06/23/2020 Have You Been To An Area Known To Be High Risk For COVID-19? No Information not available 06/23/2020 Are You Deaf Or Do You Have Serious Difficulty Hearing? No Information not available 06/23/2020 What Type Of Diet Are You Following? REGULAR Information n ot available 06/23/2020 What Is The Highest Grade Or Level Of School You Have Completed Or The Highest Degree You Have Received? 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 No Information not available 06/23/2020 Do You Use Protection During Sex? Always Information not available 06/23/2020 Do You Use Your Seat Belt Or Car Seat Routinely? Yes Information not available 06/23/2020 Do You Have Smoke And Carbon Monoxide Detectors In Your Home? Yes Information not available 06/23/2020 How Much Tobacco Do You Smoke? No Information not available 06/23/2020 Do You Feel Stressed (tense, Restless, Nervous, Or Anxious, Or Unable To Sleep At Night)? [id number] Information not available 06/23/2020 Do You Use Any Illicit Or Recreational Drugs? No Information not available 06/23/2020 Do You Use Sunscreen Routinely? Yes Information not available 06/23/2020 How Many Years Have You Smoked Tobacco? 0 [email or web address] Information not available 04/20/2022 Have You Used IV Drugs? No Information not available 06/23/2020 Sex: Unknown Functional Status Question Answer Note LastModified by Organizat ion Details LastModified Time Do you have difficulty walking or climbing stairs? No Information not available 06/21/2022 Are you able to walk? YESWOREST Information not available 06/23/2020 Are you able to care for yourself? Yes [email or web address] Information not available 06/21/2022 Do you have difficulty dressing or bathing? No Information not available 06/21/2022 What is your exercise level? Moderate [email or web address] Information not available 04/20/2022 Mental Status None recorded. Family History Relationship Description Onset Age of this Age Resolved Age Notes LastModified by Organization Details LastModified Time Paternal Grandmother Carcinoma in situ of breast [email or web address] Not available 2022 14:20:48 Mother Anemia Not available 04/20/2022 14:01:45 Maternal Grandmother Diabetes mellitus Not available 04/20 14:01:45 Maternal Grandfather Diabetes mellitus Not available 04/20 14:01:45 Unspecified Relation Family history unknown [email or web address] Not available 04/20 14:01:45 Medical History Condition Response Allergies (Food, seasonal, environmental ) N Other N Breast Cancer N Drug/Latex Allergies/Reactions N Blood Transfusion N Dermatologic Disorders N Lung Disease N Defects or Inherited Disease N Breast Problem N Gestational Diabetes N Hematologic disorders N Anesthesia Complications N History of STI N Deep Vein Thrombosis N Polycystic ovary syndrome N Anxiety Disorder N Autoimmune disease N Arthritis N Infertility N Polyps N Acid Reflux (GERD) N History of abnormal pap N Cancer N Stroke N Varicosities N Neurologic/Epilepsy N Endometriosis N High Cholesterol N Headaches N Fibromyalgia N Kidney Disease N Heart Problems N Kidney or Bladder Problems N Thyroid Problems N GI Problems N Eating Disorder N Anemia N Art (IVF or FET) N Psychiatric Illness N Ovarian Cancer N Diabetes N Pulmonary (TB, Asthma) N Hepatitis/Liver Disease N No Past Medical History Y Eczema N Urinary Tract Infection N Abuse/Domestic Violence N Asthma N Trauma/Violence N Depression/ depression N Heart Disease N Pre-Eclampsia N Hypertension N Osteoporosis N Thrombophilias N Gynecological History Statement/Question Response Abnormal Pap Y Date of LMP 04/20/2022 N Was last menstrual period normal Y STIs/STDs N HPV Vaccine N Duration of Flow (days) 5 Current Control Method Implant Date of control 08/01/2018 Frequency of Cycle (Q days) 5 Sexually Active? Y Implant Age of first menstrual cycle 12 Date of Last Pap Smear 04/20/2022 Sexual Problems? N Desired Control Method Implant LMP Definite N Obstetrics History GPAL:G 0 P 0 0 0 0 Past Encounters Encounter ID Performer Location Encounter Start Date Encounter Closed Date Diagnosis/Indication Diagnosis SNOMED-CT Code Diagnosis ICD10 Code Diagnosis Note [id number] Jessa Arreola [facility] [address],[place] [address] 07/25/2019 09:33:46 07/25/2019 11:36:26 Removal of subcutaneous contraceptive 241737675 Z30.46 Removal site was cleansed with betadine [id number] lidocaine used for anesthesia . Device was removed in normal fashion without difficulty . Steristips and pressure bandage placed. Implantati on of subcutaneous contraceptive 874187704 Z30.9 Patient is here currently on her menses. She was given all the r/b/a of placement of the Nexplanon device and has signed the consent. She is fully aware of all possible side effects of the device and has decided to move forward with placement. Insertion site was cleansed with betadine and 3cc lidocaine used for anesthesia . Device was placed in the left arm per usual fashion w/o complicati on and patient instructed to f/u in one month or earlier if there are any si/sx of infection or hypersensi tivity at the insertion site test negative [id number] Z32.02 [id number] [facility] [address],[place] [address] 06/23/2020 11:45:07 06/27/2020 20:57:26 Urinary tract infectious disease 52204291 N39.0 Nurses visit UTI [id number] [facility] [address],[place] [address] 04/20/2022 13:50:20 04/20/2022 14:57:58 Gynecologic examination 57579450 Z01.419 Take Calcium with Vitamin D 1200mg daily if not receiving in daily diet. It is strongly advised to have an annual flu shot and up can obtain at most pharmacies . If you have not had a TDap shot in the last 10 years you should obtain one as well. Discussed with patient & provided with informatio n regarding Gardisil vaccine to prevent the 4 strains for HPV that cause cervical cancer if under age 26. Encourage safe sexual practices, to use condoms and limit partners if not already in a monogamous relationsh ip. Do monthly self breast exams. Have mammogram yearly or every other year depending on family history. BRCA testing is now available for patients with strong genetic history of female cancer. If interested contact the office. Engage in daily exercise of low impact aerobic exercise 45-60 minutes 4-5 times weekly. Avoid tobacco and illicit drugs as well as using moderation with alcohol intake less than 1-2 8 oz beverages daily. This lifestyle behavior pattern will lead to less health conditions and longer life span. If BMI greater than 25 weight watchers or dietary consult advised. Patient received above instructio ns, and questions have been answered. If you have any questions please call or respond to this email. Patient was made aware of the patient portal and may obtain a paper copy of today's plan if desired. Pap sentSTD Screen sentGeneti c Screen discussedC olon Screen naDexa Screen naRoutine Labs PCPNexplan on due to be removed/re inserted no later 07/2022. [id number] Jessa Arreola [facility] [address] [address] 05/18/2022 14:10:36 05/18/2022 14:50:51 Screening procedure [id number] Z13.9 Atypical s quamous cells of undetermined significance on cervical Papanicolaou smear [id number] R87.610 R87.820 See procedure notes.Post -procedure instructio ns reviewed with understand ing verbalized .Will contact with results & next steps in plan of care. Counseled on Pap/HPV guidelines /Testing/R esults with understand ing verbalized .All questions answered to patient satisfacti on. Booklet & additional resources regarding pap smear/HPV/ Pap results given. [email or web address].g ov/types/c ervical/un derstandin g-abnormal -hpv-and-p ap-test-re sults/manuelae rstanding- cervical-c hanges.pdf [id number] MARJORIE [facility] [address] [address] 06/21/2022 14:20:43 06/21/2022 14:43:41 Implantation of subcutaneous contraceptive [id number] Z30.9 Patient is here currently on her menses. She was given all the r/b/a of placement of the Nexplanon device and has signed the consent. She is fully aware of all possible side effects of the device and has decided to move forward with placement. Insertion site was cleansed with betadine and 3cc lidocaine used for anesthesia . Device was placed in the left arm per usual fashion w/o complicati on and patient instructed to f/u in one month or earlier if there are any si/sx of infection or hypersensi tivity at the insertion site Removal of subcutaneous contraceptive [id number] Z30.46 Removal site was cleansed with betadine mci3drww lidocaine used for anesthesia . Device was removed in normal fashion without difficulty . Steristips and pressure bandage placed. Health Concerns Section Related Observation LastModified by Organization Detai ls LastModified Time None Recorded Concern Status LastModified by Organization Details LastModified Time None Recorded Advance Directives Directive N: Payers Encounter Date Sequence Insurance Name Policy Number Policy Riggs Covered Member ID Riggs Member ID Guarantor Name 07/25/2019 1 [place] [id number] Xiomara Howell [employer] [id number] 06/23/2020 1 [place] [id number] Xiomara Lynda [employer] [id number] [employer] 04/20/2022 1 [place] [id number] Xiomara Lynda Preston [id number] [employer] 05/18/2022 1 [place] [id number] Xiomara Howell Mohan [id number] [facility] 06/21/2022 1 [place] [id number] Xiomara Preston [id number] [facility] Notes Date Note Type Note Provider Name and Address Organization Details Recorded Time 07/25/2019 text/html Here for nexplan on removal/reinsertion of new device. See procedure notes. [facility] [address], [place], [address], [facility] 07/25/2019 13:50:29 04/20/2022 text/html Annual GYNReport ed bypatient.History:n o gynecologic complaints Menstrual cycle:Normal menses Urinary symptoms:No hematuria; No incontinence Vulva:No genital lesion Vagina:Normal vaginal discharge Breast:No breast pain; No breast lump; No nipple discharge Current Contraception:Satis fied with current contraception; Subdermal contraceptive implant Sexual complaints:No sexual complaints; No pain during intercourse; Normal libido Menopausal Symptoms:No menopausal symptoms; Normal vaginal lubrication Psychological symptoms:No depression; No anxiety; No PMDD Preventive measures:Encourage self breast examination; Encourage regular exercise; Encourage no tobacco use; Encourage regular mammograms starting age 40; Followed with yearly pap smears J[facility]ola [facility] [address], [place], [address], [facility] 04/20/2022 14:25:20 05/18/2022 text/html Here today for colpo d/t ASCUS +HPV pap. J[facility] [address] [place], [address], [facility] 05/18/2022 14:48:27 06/21/2022 text/html Here today for nexplanon removal/reinsertion . Jessa [facility]ola [facility] [address] [place], [address], [facility] 06/21/2022 14:42:51 OBGyn Episode No OBEpisode recorded.
--- OUTSIDE RECORDS SUMMARY | 2024-07-14 19:06 | XMS_ITS | Clinical Summary ---
Author Organization [facility] Address [address] [place] [address] Care Team Providers Care Workday Senior Associate Name Role Phone Unavailable Primary Care Provider Unavailabl e Source Comments [facility],non-owned Affiliates and Associated Physician Practices is amultiple site organization consisting of ambulatory clinics and hospital sitesin [place], [place]. This disclosure is being madepursuant to the Care Everywhere program and may not contain all information available regarding this patient. Last updated 17.[facility] Allergies No known active allergies Medications * Be aware that medications may not be up to date on this document. Alwaysverify current medications with the patient. etonogestrel (NEXPLANON) 68 MG implant Nexplanon 68 mg subdermal implant Inject by subcutaneous route. 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 Gender Identity Not on file Sexual Orientation Not on file Last Filed Vital Signs Vital Sign Reading Time Taken Comments Blood Pressure 118/78 09/28/2020 2:59 PM CDT Pulse 98 09/28/2020 2:59 PM CDT Temperature 36.5 C (97.7 F) 09/28/2020 2:59 PM CDT Respiratory Rate 16 09/28/2020 2:59 PM CDT Oxygen Saturation 97% 09/28/2020 2:59 PM CDT Inhaled Oxygen Concentration - - Weight 74.8 kg (165 lb) 09/28/2020 2:59 PM CDT Height 157.5 cm (5' 2 ) 09/28/2020 2:59 PM CDT Body Mass Index 30.18 09/28/2020 2:59 PM CDT Plan of Treatment Health Maintenance Due Date Last Done Comments HIV SCREENING 02/26/2012 HEPATITIS C SCREENING 02/21/2015 DTAP/TDAP/TD VACCINES (1 - Tdap) 02/26/2016 HEPATITIS B VACCINE (1 of 3 - 19+ 3-dose series) 02/26/2016 COVID-19 VACCINE (3 - 2023-2 5 season) 2023 06/02/2020, 05/13/2020 DEPRESSION SCREENING 03/12/2024 INFLUENZA VACCINE (Season Ended) 2024 ZOSTER VACCINE (1 of 2) 2047 HIB VACCINE Aged Out No longer eligi ble based on patient's age to complete this topic HPV VACCINE Aged Out No longer eligi ble based on patient's age to complete this topic MENINGOCOCCAL (Group B) VACCINE SHARED DECISION-MAKING Aged Out No longer eligible based on patient's age to complete this topic MENINGOCOCCAL GROUPS A/C/Y/W VACCINE Aged Out No longer eligible b ased on patient's age to complete this topic PNEUMOCOCCAL VACCINE Aged Out No long er eligible based on patient's age to complete this topic Insurance [facility] Address: [facility] [id number] [place] [address] * Guarantor: BRENDAN REYES Account Type Relation to Patient Date of Phone Billing Address Personal/Family Mother
[2024-07-14 19:16] VITALS: BP 138/88; PULSE 115; RESP 18; TEMP 36.7; O2SAT 100
--- NOTE | 2024-07-14 19:18 | ED_ITS ---
HPI - General Adult General Chief complaint: Abdominal Pain Stated complaint: pain in side Time Seen by Provider: 07/14/24 19:49 Source: patient Mode of arrival: ambulatory Limitations: no limitations History of Present Illness HPI narrative: 29-year-old female presents concern for left side/posterior pain. She denies any injury or trauma. Reports pain started 3 days ago in her left scapula and has now moved down toward her rib area. She denies rash, bruising, redness, warmth. She reports it hurts at rest and hurts worse with movement such as standing up, bending, twisting. She reports ibuprofen helps very briefly. She denies dysuria, frequency, urgency, dark colored urine, foul smelling urine. She denies difficulty urinating. She denies abdominal pain, nausea, vomiting. She denies fever, body aches, chills, sweats. MD complaint: Side pain Related Data Allergies Allergy/AdvReac Type Severity Reaction Status Date / Time No Known Allergies Allergy Verified 07/14/24 19:31 Review of Systems Review of Systems: CONSTITUTIONAL: Denies malaise, chills, sweats, or fever. EYES: Denies visual changes, redness, or discharge. ENT: Denies rhinorrhea, congestion, sinus pain, otalgia or sore throat. CARDIOVASCULAR: Denies chest pain, palpitations, or edema. RESPIRATORY: Denies cough or dyspnea. GASTROINTESTINAL: Denies abdominal pain, nausea, vomiting, diarrhea, bloody, or mucous stools. GENITOURINARY: Denies dysuria or hematuria. SKIN: Denies rash or itching. MUSCULOSKELETAL: Denies joint pain, or myalgia. Reports left sided mid back and side pain NEUROLOGIC: Denies numbness, weakness, or headache. PSYCHIATRIC: Denies anxiety or depression. All systems reviewed & are unremarkable except as noted in HPI and below PMFSH Surgical History Surgical History History of orthopedic surgery Bunionectomy, trigger release Social History Social History Smoking status: Never smoker Alcohol intake: never Substance use: never Lack of Transportation: No Lack of Food: Never True Current Housing: I Have Housing Concerned About Future Housing: No Difficulty Paying Gas/Electric Bills: No Difficulty Paying for Meds: No Currently Unemployed: No Education: High School Diploma/GED Difficulty w/ Childcare or Family Care: No Living arrangements: with family Occupation/Education: occupation Gender identity (if verbalized by the patient): Female Sexual Orientation (if Verbalized by the Patient): Straight or Heterosexual Spiritual care concerns: No Comments At time of signature, agree with nursing past medical, surgical, social and family history. There is no relevant family history pertinent to the presenting complaint Exam Narrative: GENERAL: Well-appearing, well-nourished, and in no acute distress. HEAD: Normocephalic, atraumatic. EYES: PERRLA and EOMI. NECK: Supple. No lymphadenopathy. CHEST: Clear to auscultation. No respiratory distress. HEART: Regular rate and rhythm. Distal pulses palpable and equal, cap refill <3 seconds ABDOMEN: Soft, nontender, nondistended, normal active bowel sounds, no palpable or pulsatile masses. No CVA tenderness MUSCULOSKELETAL: Normal range of motion and strength in all extremities; 5/5 strength with hip flexion and extension, dorsiflexion and extension, knee flexion and extension, plantar flexion and extension. Normal sensation in dermatomal distributions with sensitivity to light touch and pain. No midline back tenderness to palpation. No paraspinal tenderness. Tenderness along the left lateral ribs. Transfers from to sitting to standing. SKIN: Warm, dry, no rash. No ecchymosis, erythema, open wounds to back. NEURO: No focal deficits. Alert and oriented x3. Normal gait. PSYCH: Normal mood and affect Course Course Emergency Course: Patient is aware of diagnosis, understands and agrees to treatment plan. Anticipatory guidance given. Patient agrees to follow-up as directed and is aware of reasons to seek care at the emergency department. Portions of this record may have been created with voice recognition software Level of Care: Express Care Visit Vital Signs Vital signs: Vital Signs Temperature 98.0 F 07/14/24 19:16 Pulse Rate 115 H 07/14/24 19:16 Respiratory Rate 18 07/14/24 19:16 Blood Pressure 138/88 07/14/24 19:16 Pulse Oximetry 100 07/14/24 19:16 Oxygen Delivery Room Air 07/14/24 19:16 Temperature 98.0 F 07/14/24 19:16 Pulse Rate 115 H 07/14/24 19:16 Respiratory Rate 18 07/14/24 19:16 Blood Pressure 138/88 07/14/24 19:16 Pulse Oximetry 100 07/14/24 19:16 Oxygen Delivery Room Air 07/14/24 19:16 Reviewed. Medical Decision Making MDM Narrative Medical decision making narrative: The patient was evaluated by myself in the [facility] care. History is obtained from patient who is an independent historian and physical exam was performed.? Available medical records were reviewed at this time. ? Exam findings show no acute concerns or changes; patient is non-toxic appearing and is in no distress. Patient is appropriate for outpatient treatment and follow-up. ? I have evaluated and discussed social determinants of health with the patient that could potentially impact subsequent diagnosis and treatment plans. ? Differential diagnosis and treatment plan were discussed with the patient. Patient agrees with discussion and after shared medical decision making agrees with plan of care. All questions were answered to the patient's satisfaction. Vital Signs Vital Signs: Vital Signs Temperature 98.0 F 07/14/24 19:16 Pulse Rate 115 H 07/14/24 19:16 Respiratory Rate 18 07/14/24 19:16 Blood Pressure 138/88 07/14/24 19:16 Pulse Oximetry 100 07/14/24 19:16 Oxygen Delivery Room Air 07/14/24 19:16 Temperature 98.0 F 07/14/24 19:16 Pulse Rate 115 H 07/14/24 19:16 Respiratory Rate 18 07/14/24 19:16 Blood Pressure 138/88 07/14/24 19:16 Pulse Oximetry 100 07/14/24 19:16 Oxygen Delivery Room Air 07/14/24 19:16 Critical Care Time Critical Care Time Critical Care Time: No Discharge Plan Discharge Clinical Impression: Rib pain on left side Patient Disposition: Home Condition: Stable Instructions: General Patient Instructions Additional Instructions: Please follow up with your Primary Care Doctor within 48-72 hours - call for an appointment. Activity as tolerated. Take prednisone as directed, take muscle relaxers every 8 hours as needed for muscle spasm- do not drive or make any important decisions while on this medication for it can make you drowsy. You may apply ice to the area as needed. If you experience any worsening pain, swelling, numbness, weakness please go to ER. Contact your doctor or go to the emergency department if you develop problems with bladder or bowel function, weakness or loss of feeling in one or both of your legs, or any other serious concerns. Patient Language: Mongolian Prescriptions: New cyclobenzaprine 10 mg tablet 10 mg PO TID PRN (Reason: muscle spasm) Qty: 20 0RF prednisone 20 mg tablet 40 mg PO DAILY 5 Days Qty: 10 0RF Follow-up/Referrals: Jose Redmond MD [Primary Care Provider] - Stand Alone Forms: Work/School Release IP Time of Disposition: 19:59
== END 2024-07-14 20:02 | disposition home or self-care (01) ==
PROVIDERS: Emergency Provider Nurse Practitioner; PCP Family Medicine
DX: R07.81 Pleurodynia (principal)
CPT/HCPCS: 99213; G0463